=== PATIENT | female | born 1980 | race Caucasian/White ===

== ENCOUNTER 2016-08-17 19:07 | Emergency (ER) | payer OTHER ==
[~2016-08-17] VITALS: Ht 172.7 cm; Wt 59.4 kg
[~2016-08-17 19:07] MED LIST: AMBIEN10 MG PO; ATROVENT 00.5 MG/2.5 IH; BENADRYL50 MG IV; BENADRYL50 MG/ML IM; BENADRYL50 MG/ML IV; BUPROPION XL150 MG PO; BUTRANS TD; BUTRANS1 EAC1 TD; BUTRANS1 EAC2 TD; BUTRANS1 EACH TD; Benadryl IV; CATHFLO ACT2 MG/2 ML IV; CELEBREX200 MG PO; CIPRODEX BOTH EARS; COMPAZINE5 MG PO; COUMADIN2.5 MG PO; COUMADIN3 MG PO; CUBICIN IV; Coumadin,Jantoven PO; DIGOXIN250 MCG PO; DIPHENHYDR50 MG/1 M2 IV; DIVALPROEX SOD250 MG PO; DOMP10T PO; DOMPERIDONE PO; DOMPERIDONE1 GM PO; DUONEB 2.5-0.5 M3 ML AEROSOL; DUONEB 2.5-0.5 M3 ML IH; Daily TPN Order IV; EDLUAR10 MG; EPIPEN ADU0.3 MG/0.3 IM; ERGOCALCIF50000 UNIT PO; Epipen Adult Autoinj IM; FENTANYL1 EAC2 TD; FENTANYL1 EAC5 TD; FERAHEME510 MG/17 IV; HEP-LOCK F100 UNIT/1 IV; HEPARIN FLUSH IV; HEPARIN IV; HEPARIN LOCK 1005 ML IV; HEPARIN SODIUM IV; IMITREX6 MG/0.5 M SC; IMITREX6 MG/0.52 SC; IMITREX6 MG/0.52 SQ; IMITREX6 MG/0.53 IM; IMITREX6 MG/0.53 SC; INR ON; INTERMEZZO3.5 MG; IRON INFUSIONS; LACTATED RING1000 ML IV; LEVAQUIN; LIBRAX CAPSULE1 EACH PO; LIDODERM 5% P1 PATCH TD; LOVENOX80 MG/0.8 SC; Lovenox SC; METHYLIN10 M1 PO; METHYLPHENIDATE10 M1 PO; METHYLPHENIDATE20 M1 PO; MULTIVIT WITH IRON; NEXIUM40 MG PO; NITROSTAT,NITR0.4 M1 SL; NORMAL SALINE FL5 ML IV; Normal Saline,NaCl 0 IV; PHENERGAN25 MG/ML IV; PRISTIQ100 MG PO; PROCHLORPER5 MG/1 ML IV; PROMETHAZINE HC25 M1 PO; PROVENTIL,2.5 MG/3 M IH; PROVENTIL,200 INHALA IH; Percocet 5/325,Endoc PO; Phenergan IV; RANITIDINE HCL IV; SALINE FLUSH 1010 ML IV; SODIUM CHLOR1L 0.9 IV; SODIUM CHLORIDE3 ML IV; SONATA10 MG PO; SUMATRIPTA6 MG/0.51 SC; SYMBICORT60 INHALAT IH; TOPAMAX100 MG PO; TOPAMAX200 MG PO; TOPAMAX50 MG PO; TOPIRAMATE100 MG PO; TORADOL10 MG PO; TPN ELECTROLYT100 ML IV; TPN IV; TYLENOL REGULA325 MG PO; ULTRAM50 MG PO; VALIUM5 MG PO; VENOFER100 MG/5 M IV; VERAMYST10 GM BOTH NARES; VERAMYST10 GM IH; VERELAN 240 MG240 MG PO; VITAMIN D250000 UNIT PO; VYVANSE70 MG PO; WELLBUTRIN XL300 MG PO; XOPENEX HF200 INHALA IH; XOPENEX IH; XOPENEX1.25 MG/0. IH; ZYRTEC10 M2 PO; ZYRTEC10 M3 PO; ZYVOX200 MG/100 IV; ZYVOX600 MG/300 IV; [UNRECOGNIZED DRUG - OTHER] IM; [UNRECOGNIZED DRUG - OTHER] IV; [UNRECOGNIZED DRUG - OTHER] IV; oxyCODONE PO
[2016-08-17 21:11] LABS: INFLUENZA A VIRAL ANTIGEN NEGATIVE; INFLUENZA B VIRAL ANTIGEN NEGATIVE
[2016-08-17 21:30] LABS: HEMATOCRIT 35.5 % (36.0-46.0); MCH 28.9 PG (29.0-34.0); MCHC 33.5 G/DL (30.0-36.0); MCV 86.2 FL (83-99); MEAN PLAT.VOLUME 10.4 uM^3 (9.5-12.4); RBC DIS.WIDTH-CV 12.5 % (11.8-14.6); RBC DIS.WIDTH-SD 38.5 % (39-53)
[2016-08-17 21:34] LABS: PLATELET COUNT 262 K/uL (156-360); RED BLOOD COUNT 4.12 M/uL (3.80-5.20); WHITE BLOOD COUNT 3.7 K/uL (4.1-10.2)
[2016-08-17 21:46] LABS: D-DIMER ELISA 0.61 mg/L FEU (< 0.57)
[2016-08-17 21:50] LABS: CHLORIDE 109 mEq/L (99-109); POTASSIUM 3.3 mEq/L (3.7-5.4); SODIUM 139 mEq/L (136-147)
[2016-08-17 21:51] LABS: GLUCOSE 93 mg/dL (70-99)
[2016-08-17 21:53] LABS: ANION GAP 10 MEQ/L (2-14)
[2016-08-17 21:55] LABS: GFR ESTIMATE (CALCULATED) > 59 mL/min/
[2016-08-17 21:56] LABS: UREA NITROGEN (BUN) 11 mg/dL (9-23)
[2016-08-17] MEDS ORDERED: LEVAQUIN750 MG PO (23:56)
[2016-08-17] MEDS ORDERED: VENTOLIN HFA18 GM IH (23:58)
[2016-08-18] MEDS ORDERED: LEVOFLOXAC750 MG/150 IV (00:10)
[2016-08-18 02:47] VITALS: BP 95/68
== END 2016-08-18 02:49 | disposition home or self-care (01) ==
LOC: EME 19:07 → RME 19:07
PROVIDERS: Physician Assistant
DX: J18.9 Pneumonia, unspecified organism (principal); Z86.718 Personal history of other venous thrombosis and embolism
CPT/HCPCS: 71020; 71275; 80048; 81003; 83605; 85027; 85379; 87040; 87077; 87186; 87502; 87801; 99281; 99285; J1956; J7030

== ENCOUNTER 2016-12-25 13:52 | Emergency (ER) | payer OTHER ==
[~2016-12-25] VITALS: Ht 172.7 cm; Wt 55.1 kg
[~2016-12-25 13:52] MED LIST changes: +LEVAQUIN750 MG PO; +LEVOFLOXAC750 MG/150 IV; +VENTOLIN HFA18 GM IH
[2016-12-25 17:29] VITALS: BP 119/77
== END 2016-12-25 17:30 | disposition home or self-care (01) ==
LOC: EME 13:52
PROC: 03HY33Z Insertion of Infusion Device into Upper Artery, Percutaneous Approach (ICD-10-PCS; principal; 2016-12-25)
DX: T82.898A Other specified complication of vascular prosthetic devices, implants and grafts, initial encounter (principal); Y84.8 Other medical procedures as the cause of abnormal reaction of the patient, or of later complication, without mention of misadventure at the time of the procedure; Z91.040 Latex allergy status; Z88.1 Allergy status to other antibiotic agents; Z88.6 Allergy status to analgesic agent; Z88.0 Allergy status to penicillin
CPT/HCPCS: 99281; 99284

== ENCOUNTER 2016-12-27 09:41 | Day surgery (SDC) | payer OTHER ==
[2016-12-27] MEDS ORDERED: FENTANYL1 EA10 TD (10:00)
[2016-12-27] MEDS ORDERED: PYRIDOSTIGMINE60 MG PO (10:00)
[2016-12-27] MEDS ORDERED: VOLTAREN 1% GE100 GM TP (10:01)
[2016-12-27] MEDS ORDERED: CYMBALTA60 MG PO (10:02)
== END 2016-12-27 13:18 | disposition home or self-care (01) ==
LOC: CATH 09:41
DX: T82.514A Breakdown (mechanical) of infusion catheter, initial encounter (principal); Y83.1 Surgical operation with implant of artificial internal device as the cause of abnormal reaction of the patient, or of later complication, without mention of misadventure at the time of the procedure
CPT/HCPCS: J0690; J1200; J1644; J2250; J2405; J2550; J3010; S0020

== ENCOUNTER 2017-01-07 09:06 | Observation (INO) | payer OTHER ==
[~2017-01-07] VITALS: Ht 172.7 cm; Wt 54.5 kg
[~2017-01-07 09:06] MED LIST changes: +CYMBALTA60 MG PO; +FENTANYL1 EA10 TD; +PYRIDOSTIGMINE60 MG PO; +VOLTAREN 1% GE100 GM TP
[2017-01-07 10:46] LABS: HEMATOCRIT 37.4 % (36.0-46.0); MCH 28.7 PG (29.0-34.0); MCHC 33.2 G/DL (30.0-36.0); MCV 86.6 FL (83-99); RBC DIS.WIDTH-SD 41.1 % (39-53); RED BLOOD COUNT 4.32 M/uL (3.80-5.20); WHITE BLOOD COUNT 4.6 K/uL (4.1-10.2)
[2017-01-07 10:56] LABS: CHLORIDE 112 mEq/L (99-109); POTASSIUM 4.1 mEq/L (3.7-5.4); SODIUM 140 mEq/L (136-147)
[2017-01-07 10:58] LABS: GLUCOSE 107 mg/dL (70-99)
[2017-01-07 11:00] LABS: ANION GAP 10 MEQ/L (2-14)
[2017-01-07 11:02] LABS: GFR ESTIMATE (CALCULATED) > 59 mL/min/
[2017-01-07 11:03] LABS: PLATELET COUNT 255 K/uL (156-360); UREA NITROGEN (BUN) 18 mg/dL (9-23)
[2017-01-07 12:03] LABS: ADD MIUA? YES; BILIRUBIN NEGATIVE; BLOOD NEGATIVE; COLOR YELLOW ((YELLOW)); GLUCOSE (STRIP) NEGATIVE; KETONES 5; LEUKOCYTES NEGATIVE; NITRITE NEGATIVE; PROTEIN (STRIP) 30; SPECIFIC GRAVITY 1.025 (1.000-1.030); UROBILINOGEN 0.2 MG/DL (0.2-1.0)
[2017-01-07 12:16] LABS: BACTERIA RARE /HPF; EPITHELIAL CELLS RARE /HPF; HYALINE CASTS 40-50 /LPF; MUCUS 4+ /LPF; RED BLOOD CELLS 0-5 /HPF (0-5); UCUL ADDED? NO; WHITE BLOOD CELLS 0-5 /HPF (0-5)
[2017-01-07] MEDS ORDERED: VENTOLIN HFA18 GM IH (19:10)
[2017-01-07] MEDS ORDERED: DURAGESIC12 MCG TD (19:11)
[2017-01-07] MEDS ORDERED: DURAGESIC50 MCG PO (19:12)
[2017-01-07] MEDS ORDERED: TOPAMAX100 MG PO (19:12)
[2017-01-07] MEDS ORDERED: FOCALIN10 MG PO (19:13)
[2017-01-07] MEDS ORDERED: TYLENOL REGULA325 MG PO (19:18)
[2017-01-07 20:54] VITALS: BP 108/62
[2017-01-08 02:34] LABS: METH RESISTANT S AUREUS PCR NEGATIVE (NEGATIVE)
[2017-01-08 02:38] LABS: PROBE CHECK PASS; SPECIMEN PROCESSING CONTROL PASS
[2017-01-08 04:00] VITALS: BP 106/57
[2017-01-08 07:22] VITALS: BP 89/53
[2017-01-08 11:29] VITALS: BP 100/60
[2017-01-08 15:57] VITALS: BP 103/59
[2017-01-08 19:19] VITALS: BP 101/59
[2017-01-09] VITALS: BP 97/50
[2017-01-09 04:55] VITALS: BP 99/54
[2017-01-09 07:45] VITALS: BP 97/56
[2017-01-09] MEDS ORDERED: PREDNISONE5 MG PO (09:42)
== END 2017-01-09 12:11 | disposition home or self-care (01) ==
LOC: EME 09:06 → EDOF 19:23 → 5WEST 20:22
PROVIDERS: Emergency Medicine; Hospitalist
DX: J20.9 Acute bronchitis, unspecified (principal); J45.21 Mild intermittent asthma with (acute) exacerbation; I34.0 Nonrheumatic mitral (valve) insufficiency; G47.33 Obstructive sleep apnea (adult) (pediatric); K31.84 Gastroparesis; R63.4 Abnormal weight loss; Z68.1 Body mass index [BMI] 19.9 or less, adult; I10 Essential (primary) hypertension; E78.5 Hyperlipidemia, unspecified; G89.29 Other chronic pain; R10.9 Unspecified abdominal pain; F41.1 Generalized anxiety disorder; Z86.718 Personal history of other venous thrombosis and embolism; K44.9 Diaphragmatic hernia without obstruction or gangrene; K21.9 Gastro-esophageal reflux disease without esophagitis; M81.0 Age-related osteoporosis without current pathological fracture; D64.9 Anemia, unspecified; G43.909 Migraine, unspecified, not intractable, without status migrainosus
CPT/HCPCS: 71020; 71275; 80048; 81003; 85027; 87040; 87641; 94640; 94640 76; 94799; 99202; 99281; 99285; G0378; J0456; J1200; J1650; J1885; J2550; J2930; J7030; J7120

== ENCOUNTER 2017-06-01 16:10 | Emergency (ER) | payer OTHER ==
[~2017-06-01] VITALS: Ht 170.2 cm; Wt 50.0 kg
[~2017-06-01 16:10] MED LIST changes: +DURAGESIC12 MCG TD; +DURAGESIC50 MCG PO; +FOCALIN10 MG PO; +PREDNISONE5 MG PO
[2017-06-01 16:51] LABS: HEMATOCRIT 38.5 % (36.0-46.0); MCH 29.3 PG (29.0-34.0); MCHC 32.2 G/DL (30.0-36.0); MEAN PLAT.VOLUME 10.2 uM^3 (9.5-12.4); PLATELET COUNT 296 K/uL (156-360); RBC DIS.WIDTH-CV 13.3 % (11.8-14.6); RBC DIS.WIDTH-SD 44.6 % (39-53); RED BLOOD COUNT 4.23 M/uL (3.80-5.20); WHITE BLOOD COUNT 7.1 K/uL (4.1-10.2)
[2017-06-01 17:01] LABS: CHLORIDE 102 mEq/L (99-109); POTASSIUM 4.3 mEq/L (3.7-5.4); SODIUM 139 mEq/L (136-147)
[2017-06-01 17:03] LABS: GLUCOSE 95 mg/dL (70-99)
[2017-06-01 17:04] LABS: ANION GAP 12 MEQ/L (2-14)
[2017-06-01 17:07] LABS: GFR ESTIMATE (CALCULATED) > 59 mL/min/; UREA NITROGEN (BUN) 19 mg/dL (9-23)
[2017-06-01 17:12] LABS: TROP-I INTERPRETATION NEGATIVE; TROPONIN-I < 0.01 ng/mL (0.0-0.30)
[2017-06-01 21:03] VITALS: BP 102/65
== END 2017-06-01 21:07 | disposition home or self-care (01) ==
LOC: EME 16:10
DX: R07.89 Other chest pain (principal); R11.2 Nausea with vomiting, unspecified; R68.84 Jaw pain; M25.512 Pain in left shoulder; R42 Dizziness and giddiness; H91.90 Unspecified hearing loss, unspecified ear; J45.909 Unspecified asthma, uncomplicated; Z87.442 Personal history of urinary calculi
CPT/HCPCS: 71020; 80048; 84484; 85027; 93005; 99281; 99285; J0780; J1885; J7040

== ENCOUNTER 2017-07-26 10:25 | Emergency (ER) | payer OTHER ==
[~2017-07-26] VITALS: Ht 172.7 cm; Wt 54.2 kg
[2017-07-26 11:49] LABS: EOSINOPHIL (%) 0.4 % (0-5); IMMATURE GRANULOCYTE (%) 0.4 % (0.0-0.7); INSTRUMENT ABS NEUTROPHIL CT 8.4 K/uL; LYMPHOCYTE COUNT 1.1 K/uL (1.0-2.8); MCH 28.3 PG (29.0-34.0); MCHC 32.3 G/DL (30.0-36.0); MCV 87.6 FL (83-99); MEAN PLAT.VOLUME 9.9 uM^3 (9.5-12.4); MONOCYTE (%) 6.2 % (3-12); MONOCYTE COUNT 0.6 K/uL (0-0.8); NEUTROPHIL (%) 82.3 % (45-76); NEUTROPHIL COUNT 8.4 K/uL (1.8-6.4); PLATELET COUNT 275 K/uL (156-360); RBC DIS.WIDTH-CV 12.7 % (11.8-14.6); RED BLOOD COUNT 4.45 M/uL (3.80-5.20); WHITE BLOOD COUNT 10.2 K/uL (4.1-10.2)
[2017-07-26 11:54] LABS: INTER. NORMALIZED RATIO 1.1; PROTHROMBIN TIME 12.3 SEC (10.2-12.9)
[2017-07-26 11:57] LABS: PTT 30.1 SEC (25-37)
[2017-07-26 12:02] LABS: CHLORIDE 103 mEq/L (99-109); SODIUM 139 mEq/L (136-147)
[2017-07-26 12:04] LABS: GLUCOSE 104 mg/dL (70-99)
[2017-07-26 12:05] LABS: ANION GAP 11 MEQ/L (2-14)
[2017-07-26 12:08] LABS: GFR ESTIMATE (CALCULATED) > 59 mL/min/
[2017-07-26 12:09] LABS: UREA NITROGEN (BUN) 12 mg/dL (9-23)
[2017-07-26 12:11] LABS: TROP-I INTERPRETATION NEGATIVE; TROPONIN-I < 0.01 ng/mL (0.0-0.30)
[2017-07-26] MEDS ORDERED: FUROSEMIDE20 MG PO (12:13)
[2017-07-26] MEDS ORDERED: ASPIRIN325 MG PO (12:14)
[2017-07-26] MEDS ORDERED: LOPRESSOR25 MG PO (12:14)
[2017-07-26] MEDS ORDERED: MAG-OXIDE400 MG PO (12:15)
[2017-07-26] MEDS ORDERED: PROMETHAZINE HC25 M1 PO ×2 (12:16)
[2017-07-26] MEDS ORDERED: BENADRYL50 MG PO (12:17)
[2017-07-26] MEDS ORDERED: COMPAZINE10 MG PO (12:18)
[2017-07-26] MEDS ORDERED: TRANSDERM-SCOP1 EACH TD (12:18)
[2017-07-26] MEDS ORDERED: NEXIUM40 MG PO (12:19)
[2017-07-26] MEDS ORDERED: PROAIR HFA8.5 GM IH (12:19)
[2017-07-26] MEDS ORDERED: FLONASE16 G1 BOTH NARES (12:20)
[2017-07-26] MEDS ORDERED: SUMATRIPTA6 MG/0.51 SC (12:21)
[2017-07-26] MEDS ORDERED: VYVANSE70 MG PO (12:21)
[2017-07-26] MEDS ORDERED: VITAMIN D10000 UNIT PO (12:22)
[2017-07-26] MEDS ORDERED: DURAGESIC50 MCG TD (12:22)
[2017-07-26] MEDS ORDERED: REMERON30 M2 PO (12:23)
[2017-07-26 18:33] VITALS: BP 116/88
== END 2017-07-26 18:35 | disposition home or self-care (01) ==
LOC: EME 10:25
PROVIDERS: Emergency Medicine
DX: R07.9 Chest pain, unspecified (principal); F43.9 Reaction to severe stress, unspecified; M79.7 Fibromyalgia; K21.9 Gastro-esophageal reflux disease without esophagitis; E78.5 Hyperlipidemia, unspecified; J45.909 Unspecified asthma, uncomplicated; G47.30 Sleep apnea, unspecified; F41.9 Anxiety disorder, unspecified; F32.9 Major depressive disorder, single episode, unspecified; G43.909 Migraine, unspecified, not intractable, without status migrainosus; R56.9 Unspecified convulsions; K58.9 Irritable bowel syndrome, unspecified; E55.9 Vitamin D deficiency, unspecified; Z86.718 Personal history of other venous thrombosis and embolism; Z86.73 Personal history of transient ischemic attack (TIA), and cerebral infarction without residual deficits; Z90.49 Acquired absence of other specified parts of digestive tract; Z90.710 Acquired absence of both cervix and uterus; Z87.442 Personal history of urinary calculi; Z91.040 Latex allergy status; Z88.1 Allergy status to other antibiotic agents; Z88.5 Allergy status to narcotic agent; Z88.0 Allergy status to penicillin; Z88.8 Allergy status to other drugs, medicaments and biological substances
CPT/HCPCS: 71275; 80048; 84484; 85025; 85610; 85730; 93005; 93971; 99281; 99285; J1200; J1630; J3010; J7030